=== PATIENT | male | born 1980 | race Caucasian/White ===

== ENCOUNTER 2017-01-27 13:28 | Observation (INO) | payer SELFPAY ==
[~2017-01-27] VITALS: Ht 181.6 cm; Wt 161.7 kg
[2017-01-27] VITALS (11 sets, daily range): BP systolic 164–233; BP diastolic 98–142; PULSE 83–97; RESP 14–21; O2SAT 94–97
--- NOTE | 2017-01-27 14:21 | ED.REPORT ---
HPI-General Illness Date of Service Jan 27, 2017 ED Provider: Guy Guevara MD Patient is a 36 year old male with a history of uncontrolled hypertension presents to the ED with a sharp, throbbing headache that first began at 1200 today. Patient reports that the pain was mildly present prior to falling asleep this morning but after waking up he began to experience severe pressure on the left side of his head. He rates his current pain as a 5/10. BP upon initial examination is 203/114. He denies any blurry vision, chest pain, SOB, fever or chills. Nursing Notes Stated Complaint: HEAD PAIN Chief Complaint: Neuro Symptoms/ Deficits Nursing Notes Reviewed: Yes Allergies: Coded Allergies: No Known Allergies (Unverified , 01/27/17) Scheduled Amlodipine (Amlodipine) 5 Mg Tablet 5 MG PO DAILY Levothyroxine (Levothyroxine) 125 Mcg Tablet 125 MCG PO DAILYAC Losartan Potassium (Cozaar) 25 Mg Tablet 25 MG PO DAILY Scheduled PRN Ibuprofen (Ibuprofen) 200 Mg Capsule 400 MG PO QID PRN PRN For Pain General Time Seen by MD: 13:49 Chief Complaint Headache Hx Obtained From: Patient Arrived By: Walk-in Sudden in Onset?: No Onset Occurred: 1 - 4 hours ago Symptom Duration: Since onset Location: : Head Quality: Aching, Sharp, Throbbing Radiation: : Does not radiate Severity: Current: Moderate Severity: Maximum: Moderate Associated with: Denies: Chest pain, Fever, Shortness of breath, Vision change Pertinent Negative: Pt denies other symptoms Recent Healthcare: No recent doctor visit, No recent hospitalization Past Medical History Past Medical History Hypertension - uncontrolled Past Surgical History None reported. Smoking History Unknown if Ever Smoker Social History Other Social History: Good social support, Local resident Ambulatory Status Independent Review of Systems Full Review of Systems Constitutional: Denies: Chills, Fever Respiratory: Denies: Shortness of breath Cardiovascular: Denies: Chest pain Neurologic: Reports: Headache Complete sys rev & neg: except as marked. Physical Exam Vital Signs Vital Signs Date Time Temp Pulse Resp B/P Pulse Ox O2 Delivery O2 Flow Rate FiO2 01/27/17 16:17 90 20 187/103 95 Room Air 01/27/17 15:36 91 18 187/107 96 Room Air 01/27/17 15:07 92 16 164/111 97 Room Air 01/27/17 14:42 91 17 210/109 95 Room Air 01/27/17 13:55 94 21 201/133 94 Room Air 01/27/17 13:37 37 92 17 233/142 97 Room Air Initial VS: Reviewed Skin: Warm, Dry, No cyanosis Psychiatric: Mood/affect normal, Behavior normal, Normal thought content General/Constitutional: Awake, Alert, No acute distress, Well appearing, Well developed Head / Eyes: Atraumatic, Normocephalic, PERRL, EOMI Neck: Atraumatic, Supple, Full range of motion Respiratory / Chest: Atraumatic, Breath sounds NL, Breath sounds = bilat, No respiratory distress Cardiovascular: Heart rate NL, Regular rhythm, Heart sounds NL, No gallop, No murmurs, No rubs Hypertensive (203/113 upon initial exmaination) Abdomen: Atraumatic, Soft, Non-tender, No guarding, No rebound, BS normoactive , No distention Upper Extremities Upper Extremity / MS: Atraumatic, Inspection NL, Neurologic intact, Vascular intact Lower Extremity / Pelvis / MS: Atraumatic, Inspection NL, Neurologic intact, Vascular intact Neurologic: Oriented X3, Speech NL, No motor deficits, No sensory deficits, CN II - XII intact, Reflexes equal bilat Interpretation & Diagnostics Lab Results Interpretation Result Diagram: 01/28/175 01/28/17 0225 Test 01/27/17 15:06 01/27/17 15:50 Neutrophils (%) (Auto) 62.9% (40-74) Lymphocytes (%) (Auto) 23.6% (14-46) Monocytes (%) (Auto) 10.1% (4-12) Eosinophils (%) (Auto) 2.6% (0-5) Basophils (%) (Auto) 0.4% (0-3) Prothrombin Time 9.8sec (8.1-12.5) Prothromb Time International Ratio 0.92ratio Hemoglobin A1c 5.9% (4.8-5.6) Total Bilirubin 0.3mg/dL (0.0-1.2) Aspartate Amino Transf (AST/SGOT) 22U/L (0-50) Alanine Aminotransferase (ALT/SGPT) 25U/L (0-44) Alkaline Phosphatase 104U/L (25-150) Troponin T < 0.010ug/L (0.0-0.011) Total Protein 7.7g/dL (6.4-8.4) Albumin 3.8g/dL (3.4-5.0) Triglycerides Level 103mg/dL (0-149) Cholesterol Level 117mg/dL (100-199) LDL Cholesterol, Calculated 58.400mg/dL (0-99) VLDL Cholesterol 20.600mg/dL HDL Cholesterol 38mg/dL (>39) Cholesterol/HDL Ratio 3.08 (0.0-4.4) Thyroid Stimulating Hormone (TSH) 20.390uIU/mL (0.450-4.500) Free Thyroxine 0.70ng/dL (0.82-1.77) Urine Color Yellow (YELLOW) Urine Appearance Cloudy (CLEAR,HAZY) Urine pH 7.0 (5.0-8.0) Urine Specific [place] 1.015 (1.003-1.035) Urine Protein Negativemg/dL (NEG,TRACE) Urine Glucose (UA) Negativemg/dL (NEGATIVE) Urine Ketones Negativemg/dL (NEGATIVE) Urine Occult Blood Small (NEGATIVE) Urine Nitrite Negative (NEGATIVE) Urine Bilirubin Negative (NEGATIVE) Urine Urobilinogen Normalmg/dL (NORMAL) Urine Leukocyte Esterase Negative (NEGATIVE) Urine RBC 3-10/hpf (0-2) Urine WBC 0-5/hpf (0-5) Urine Epithelial Cells Few/hpf (NONE-MOD) Urine Crystals None seen (NONE SEEN) Urine Bacteria Few/hpf (NONE-FEW) Urine Hyaline Casts None/lpf (NONE) Urine Granular Casts None seen (NONE SEEN) Urine Waxy Casts None seen (NONE SEEN) Urine Red Blood Cell Casts None seen (NONE SEEN) Urine White Blood Cell Casts None seen (NONE SEEN) Urine Mucus None seen (None Seen) Urine Trichomonas None seen (NONE SEEN) Urine Yeast None (NONE SEEN) Urinalysis Comment None Urine Culture Reflexed Not indicated ECG Interpretation ECG Interpretation: Sinus Rhythm Rate [address] elevation in anteroseptal leads No Q wave abnormalities No prior for comparison Time: 15:44 Interpreted by: ED physician CT Head Interpretation IMPRESSION: 1. No acute intracranial abnormalities. 2. Left maxillary sinusitis. Dictated by: Kevon Gaffney M.D. on 01/27/2017 at 15:14 Study: Head CT no contrast Interpretation / Wet Read by: Interpret - Radiologist Re-Eval/Medical Decision Med Decision/Clinical Course Patient is a 36 year old male with a history of uncontrolled hypertension presents to the ED with a sharp, throbbing headache that first began at 1200 today. Patient reports that the pain was mildly present prior to falling asleep this morning but after waking up he began to experience severe pressure on the left side of his head. He rates his current pain as a 5/10. BP upon initial examination is 203/114. He denies any blurry vision, chest pain, SOB, fever or chills. Here in the emergency department the patient is quite hypertensive though otherwise stable with no lateralizing neurologic findings. EKG: Sinus Rhythm Rate [address] elevation in anteroseptal leads No Q wave abnormalities No prior for comparison Brain CT 1. No acute intracranial abnormalities. 2. Left maxillary sinusitis. Serial blood pressure measurements demonstrated significant elevation in patient 's blood pressure in the 200s over 100s. Nicardipine drip was initiated. No evidence of blood pressure discrepancy between arms. CBC and CMP were relatively unremarkable. No evidence of acute kidney injury. No findings suggestive of aortic dissection or acute coronary syndrome. Patient will be admitted to ICU for further blood pressure management in the setting of concern for hypertensive emergency due to severe headache and markedly elevated blood pressure. Pt discussed with the admitting hospitalist and transferred in stable condition. Time of Eval: 14:30 Re-Evaluation/Progress Note: Pt is informed of his concerning BP and the plan to admit to the hospital to helo control his BP. All questions are addressed. He understands and agrees with the treatment plan. Time of Eval: 15:23 Re-Evaluation/Progress Note: Following treatment, BP is 164/111. 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: Will see patient, Agrees with eval, Agrees with plan, Accepts admit Counseled Regarding: Diagnosis, Lab results, Need for admission Discharge & Departure Primary Impression: Hypertensive emergency Additional Impressions: Headache Headache type: unspecified Headache chronicity pattern: unspecified pattern Intractability: not intractable Qualified Code: R51 - Headache Hypokalemia Disposition: ADMITTED TO HOSPITAL Discharge Condition All VS Reviewed: Yes Condition: Stable Referrals: NOPCP (PCP) [facility] Crit Care Except Billable Proc Time Spent: 75-104 minutes Services Performed: Patient management by me, Time spent at bedside, Reviewing test results, Reviewing imaging, Discussing patient care, Documentation in record, Time with fam/surrogate Scribe Attestation Portions of this note were transcribed by Jean Patiño. I, Dr. Guevara personally performed the history, physical exam and medical decision-making; I reviewed and confirmed the accuracy of the information in the transcribed note. Signed by: Milind Simpson, 01/27/17 1542. Guy Guevara MD Jan 27, 2017 14:21 JEAN PATIÑO Jan 27, 2017 14:27
[2017-01-27] MEDS ORDERED: Alum-Mag Hydrox-Simeth 30 mL Suspension PO PRN ×2 (14:25→15:40)
[2017-01-27] MEDS ORDERED: IBUP200C PO (14:34)
[2017-01-27] MEDS ORDERED: NiCARdipine 25 mg/250 mL D5W IV SCH ×2 (14:35)
[2017-01-27 15:12] LABS: BASOPHILS % (AUTO) 0.4 % (0-3); EOSINOPHILS % (AUTO) 2.6 % (0-5); MONOCYTES % (AUTO) 10.1 % (4-12); Mean Corpuscular Hemoglobin 28.5 pg (27.0-35.0); Mean Corpuscular Volume 84.6 fL (81-100); NEUTROPHILS % (AUTO) 62.9 % (40-74); Platelet Count 211 bil/L (150-400)
--- NOTE | 2017-01-27 15:18 | DRSVH ---
PROCEDURE: CT BRAIN WITHOUT CONTRAST ([id number]) INDICATIONS: Stroke TECHNIQUE: Noncontrast 4.5 mm thick angled axial sections acquired from the foramen magnum to the vertex, with c oronal reformats. COMPARISON: None. FINDINGS: Image quality: Excellent. CSF spaces: Basal cisterns are patent. No extra-axial fluid collections. Ventricles are normal in size and shape. Brain: No midline shift. No intracranial masses or hemorrhage. Mata-white matter interface is norm al. Skull and face: Calvarium and visualized facial bones are intact, without suspicious lesions. Sinuses: The left maxillary sinus is opacified. The mastoids are clear. IMPRESSION: 1. No acute intracranial abnormalities. 2. Left maxillary sinusitis. Dictated by: Kevon Gaffney M.D. on 01/27/2017 at 15:14 Approved by: Kevon Gaffney M.D. on 01/27/2017 at 15:16
[2017-01-27 15:24] LABS: INR 0.92 ratio
[2017-01-27 15:33] LABS: TROPONIN T < 0.010 ug/L (0.0-0.011)
[2017-01-27] MEDS ORDERED: Ondansetron 2 mg/mL 2 mL Inj IVPUSH PRN (15:40)
[2017-01-27] MEDS ORDERED: Polyethylene Glycol (PEG) 17 Gm Powder PO PRN (15:40)
[2017-01-27 16:22] LABS: APPEARANCE,URINE CLOUDY (CLEAR,HAZY); COLOR,URINE YELLOW (YELLOW); OCCULT BLOOD,URINE SMALL (NEGATIVE); UROBILINOGEN,URINE NORMAL (NORMAL)
--- NOTE | 2017-01-27 18:14 | PCM.HPMED ---
Subjective Date of Service Jan 27, 2017 Primary Provider: Admitting Physician: Dr. Christopher Chowdhury Primary Care Physician: No PCP Attending Physician: Dr. Christopher Chowdhury Admit Status: From the Emergency Department Chief Complaint: Hypertensive Urgency Headache History of Present Illness: Pranav Clark is a 36 year old gentleman with no known past medical history who presented to the ED with a pressure headache, found to have hypertensive urgency. 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 He woke up with a 5/10 throbbing pressure on the top left of his head at noon and decided to come in. He denies any other symptoms including changes to vision, chest pain, shortness of breath, fever or chills. He doesn't have any pain in his temples. In the ED he was found to have a blood pressure of 203/114 on [address] examination. Head CT showed no acute intracranial abnormalities, but a left maxillary sinusitis. He was about to get started on a nicardipine drip, but his blood pressure did come down to 164/111. He is found to be hypokalemic in the ED with potassium 3.1. He is admitted for further monitoring of his blood pressure. Review of Systems: A comprehensive review of systems was conducted with the patient and found to be negative except as above in the History of Present Illness. 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 External ears without defect. Pupils equal, round, and reactive to light and accommodation. Anicteric sclerae, moist conjunctivae. Oropharynx free of erythema and cobble stoning with moist mucosa. Tounge piercing. Neck: Supple with full range of motion. No jugular venous distension. No bruits. No lymphadenopathy or thyromegaly. Cardiovascular: Regular rate and rhythm with no murmurs, rubs, or gallops appreciated Pulmonary: Clear to auscultation bilaterally with no crackles, wheezes, or rhonchi. Normal respiratory effort with no use of accessory muscles. Abdomen: Bowel tones present. Soft, nontender, nondistended. Difficult to assess organomegaly due to body habitus. Extremities: Mild pitting edema, No clubbing, cyanosis, or lymphadenopathy appreciated. Skin: Normal temperature, turgor, and texture; no rash, ulcers, or subcutaneous nodules appreciated. erythematous rash around both ankles Neurological: Cranial nerves grossly intact. Normal muscle strength, tone, and bulk. Reflexes, coordination, and sensory function within normal limits. No known gait impairment. Psychiatric: Normal mood and affect. Alert and oriented to person, place, and time. Pleasant and cooperative. Lab and Diagnostics Labs Item Value Date Time Sodium Level 138 mEq/L 01/27/17 1506 Potassium Level 3.1 mEq/L L 01/27/17 1506 Chloride Level 100 mEq/L 01/27/17 1506 Carbon Dioxide Level 23 mmol/L 01/27/17 1506 Blood Urea Nitrogen 15 mg/dL 01/27/17 1506 Creatinine 0.73 mg/dL L 01/27/17 1506 Estimat Glomerular Filtration Rate 128 mL/min 01/27/17 1506 Glucose Level 154 mg/dL H 01/27/17 1506 Troponin T < 0.010 ug/L 01/27/17 1506 White Blood Count 8.2 th/mm3 01/27/17 1506 Red Blood Count 4.94 mil/mm3 01/27/17 1506 Hemoglobin 14.1 g/dL 01/27/17 1506 Hematocrit 41.8 % 01/27/17 1506 Prothrombin Time 9.8 sec 01/27/17 1506 Prothromb Time International Ratio 0.92 ratio 01/27/17 1506 Urine Color Yellow 01/27/17 1550 Urine Appearance Cloudy 01/27/17 1550 Urine pH 7.0 01/27/17 1550 Urine Occult Blood Small 01/27/17 1550 Urine Nitrite Negative 01/27/17 1550 Urine Leukocyte Esterase Negative 01/27/17 1550 Urine RBC 3-10 /hpf 01/27/17 1550 Urine WBC 0-5 /hpf 01/27/17 1550 Urine Epithelial Cells Few /hpf 01/27/17 1550 Urine Bacteria Few /hpf 01/27/17 1550 Result Diagram: 01/27/17 1506 X-Rays, CTs and MRIs PROCEDURE: CT BRAIN WITHOUT CONTRAST ([id number]) IMPRESSION: 1. No acute intracranial abnormalities. 2. Left maxillary sinusitis. Assessment & Plan Pranav Clark is a 36 year old gentleman with no known past medical history who presented to the ED with a pressure headache, found to have hypertensive urgency. Hypertensive Urgency, Present on Admission, Resolved Patient found to have blood pressure of 233/142 in the ED initially, no acute intracranial abnormalities seen on CT. Came down to 164/111 without treatment. - Losartan 25 mg and amlodipine daily, per ACCOMPLISH trial - Monitor Blood pressure q2h - Monitor telemetry Headache, Present on Admission, Resolved Patient had 5/10 left sided headache, likely secondary to his blood pressure. - Tylenol PRN for pain Hypothyroidism, Present on Admission, Active TSH 20.4, Free T4 0.7, Newly diagnosed - Have started Levothyroxine 125 mcg - This needs to be monitored and followed up outpatient in 4-6 weeks Morbid Obesity, Present on Admission, Active BMI of 49.1 - Ordered Lipid panel, Hemoglobin A1c, TSH, Free T4 Code Status: Full Code Patient Status: Patient is admitted under observation status with expected length of stay less than 2 midnights due to severity of presenting symptoms and risk of adverse event. GI Prophylaxis: Not indicated Resuscitation Status: CPR: Attempt Resuscitation Attending Statement The patient was seen and examined together with Dr. Franco on 01/27/2017 and I agree with the history, exam and plan as outlined in the note above. . Timothy Franco DO Jan 27, 2017 15:39 Christopher Chowdhury MD Jan 28, 2017 07:52
[2017-01-27] MEDS ORDERED: Potassium Chloride 20 mEq SR Tablet PO ONE (18:35)
--- NOTE | 2017-01-27 19:47 | NUR ---
1730: Admit from E.R. / MD @ bedside; PCC status/ Pt awake, Ox3, DESAI equally. Denies pain, denies headache @ present. VS: Left Upper arm BP 178/102. Right Upper arm 178/106. Bedside Blood Glucose = 103. See admission & med rec in EMR; both completed by load haul dump operator.
[2017-01-28] VITALS (11 sets, daily range): BP systolic 151–188; BP diastolic 92–117; PULSE 73–91; RESP 12–18; O2SAT 97
--- NOTE | 2017-01-28 00:28 | NUR ---
P: current BP 176/117 I: akira and magdi given earlier, notified Dr. Hutchins E: Dr. Hutchins made aware. Will wait another hour and reevaluate for nicardipine drip. A/O. c/o "sinus" ache, 2/10 and a dry throat. Refusing tylenol and requesting coffee for sinuses and dry throat, helpful. "I get HAs when I do not drink coffee". Denies dyspnea, N/V. Tele SR. Voiding via urinal.
[2017-01-28 02:56] LABS: Mean Corpuscular Hemoglobin 28.7 pg (27.0-35.0); Mean Corpuscular Volume 84.3 fL (81-100)
--- NOTE | 2017-01-28 04:20 | NUR ---
P: hypertension I: cozaar, norvasc, and labetolol E: A/O. c/o sinus pain, 2/10 along w/ dry throat. Coffee and tylenol effective for sinus CALABRESE and dry throat. Denies dyspnea, N/V. Tele SR. SBP 170-200s, DBP 100-120s. Cozaar and norvasc not improving BP. Labetolol given, helpful. Current lowest BP 159/92. Voiding via urinal.
--- NOTE | 2017-01-28 11:07 | NUR ---
Social Work- Initial Assessment/Readiness for Discharge/Multidisciplinary Rounds Data: See Initial Assessment and DPOA Intervention for additional information. Pt discussed in rounds, pt to discharge home. PCP follow up is required for pt at discharge. notified that Residency Clinic is closed on Sundays. RN will put contact information of residency clinic in D/C Instructions for pt to follow up during a weekday. Pt also has no insurance. Pt's readmit risk score is 1, low risk. Pt's NOK is mother Jessica Clark, . Registration contacted to reflect this. SW met with pt at bedside regarding discharge plan, pt alert and oriented x3. Pt's capacity for self-care assessed. Pt resides in [facility] with his roommates where he is independent at baseline. Pt is independent with ADLs and self-care. No concerns identified. Pt does not have insurance at this time, ARASH discussed with pt the importance of getting insurance through the [employer] or through [employer]. Both applications are online. Pt is agreeable to looking into obtaining insurance after discharge. Pt's medications at discharge were confirmed to be around $10 from [facility], pt is agreeable and confirms that he will be able to afford these. Pt does not drive. Pt declined DPOA paperwork at bedside. Pt will discharge home with his roommate to transport via POV. Pt agreeable to plan. Assessment: Pt who is independent at baseline. Plan: Pt will discharge home with his to transport via POV. No discharge needs identified. UMANG King Addendum: 01/28/[address] SERRANO Amended: Links added.
--- NOTE | 2017-01-28 11:26 | PCM.DIMED ---
MONALISA ORDAZ DO 01/28/17 1125: Discharge Instructions Date of Service Jan 28, 2017 Dates of Hospitalization Jan 27, 2017 at 16:20 Discharge Diagnosis Discharge Diagnosis Hypertensive urgency Medication Instructions Additional med instructions Losartan 25 mg daily Amlodipine 5 mg daily Levothyroxine 125 mcg Test Results Test Results TSH - 20.390 T4 - 0.70 Patient Instructions Patient Instructions Follow up with the Residency clinic here at [facility]. I would advise following up in no more than 3 - 4 weeks time. It is very important to keep your blood pressures below 140/80. You should get your own blood pressure machine for your house, however in the mean time you can check your blood pressure daily at [facility] or [facility]. Take your medications as directed. Seek medical attention if your blood pressure is higher than 180/100 and you have symptoms including chest pain, acute shortness of breath, head ache, syncope, nausea / vomiting / diarrhea. You will need to get blood work drawn 1 week before your appointment. If you do not receive a phone call from the [facility] residency clinic in 2-3 days. Please call them and make an appointment. We have provided you with patient education regarding hypothyroid and hypertension. Follow-up Provider: [facility] Follow-up with PCP in: 3 weeks (2-3 weeks) Christopher Chowdhury MD 01/29/17 1049: Discharge Instructions Attending's Statement The patient was seen and examined together with Dr. Ordaz on 01/29/2017 and I agree with the history, exam and plan as outlined in the note above. . MONALISA ORDAZ DO Jan 28, 2017 11:25 Christopher Chowdhury MD Jan 29, 2017 10:49
[2017-01-28] MEDS ORDERED: LOSA25TA2 PO (11:27)
[2017-01-28] MEDS ORDERED: AMLO5TAB2 PO (11:27)
[2017-01-28] MEDS ORDERED: LEVO125T6 PO (11:27)
--- NOTE | 2017-01-28 11:45 | NUR ---
P: Hypertension I: BP after am BP meds given 140/92. Saline lick dc'd with catheter intact. Room air with good sats. Taking diet and fluids without difficulty. Voiding qs. UYp in room independently. Discharge instructions given with care notes and RX. E:Stable S: Alert and oriented. Indicates understanding of Rx and discharge instructions. Discharged home with family transport 1146.
--- NOTE | 2017-01-28 12:12 | NUR ---
Social Work- Discharge Data: Pt discharged today. Home with roommate via POV. Pt agreeable to discharge plan Assessment: Pt who is independent at baseline. Plan: Pt discharged today. Home with roommate via POV. Pt agreeable to discharge plan UMANG King
--- NOTE | 2017-01-28 17:32 | PCM.DC.MED ---
Discharge Summary Date of Service Jan 28, 2017 Dates of Hospitalization Date of Hospital Admission Jan 27, 2017 at 16:20 Date of Discharge: Jan 28, 2017 Providers: Admitting Physician: Christopher Chowdhury MD Primary Care Physician: Nopcp Attending Physician: Christopher Chowdhury MD Diagnosis at Time of Discharge Diagnosis at Time of Discharge Hypertensive urgency Procedures XRay, CTs & MRIs PROCEDURE: CT BRAIN WITHOUT CONTRAST ([id number]) IMPRESSION: 1. No acute intracranial abnormalities. 2. Left maxillary sinusitis. Brief History Pranav Clark is a 36 year old gentleman with no known past medical history who presented to the ED with a pressure headache, found to have hypertensive urgency. 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 He woke up with a 5/10 throbbing pressure on the top left of his head at noon and decided to come in. He denies any other symptoms including changes to vision, chest pain, shortness of breath, fever or chills. He doesn't have any pain in his temples. In the ED he was found to have a blood pressure of 203/[address] on [address] examination[address] Head CT showed no acute intracranial abnormalities, but a left maxillary sinusitis. He was about to get started on a nicardipine drip, but his blood pressure did come down to 164/111. He is found to be hypokalemic in the ED with potassium 3.1. He is admitted for further monitoring of his blood pressure. He received good outpatient medication regimen of antihypertensives and hypothyroid medications. Hospital Course Hypertensive Urgency Patient found to have blood pressure of 233/142 in the ED initially, no acute intracranial abnormalities seen on CT. Came down to 164/111 without treatment. - Losartan 25 mg and amlodipine daily, per [facility] trial Headache Patient had 5/10 left sided headache, likely secondary to his blood pressure which have now resolved. - Tylenol PRN for pain Hypothyroidism, Present on Admission, Active TSH 20.4, Free T4 0.7, Newly diagnosed. - Have started Levothyroxine 125 mcg and will continue daily. - This needs to be monitored and followed up outpatient in 4-6 weeks with [facility] and with follow up labs. Morbid Obesity, Present on Admission, Active BMI of 49.1 - Ordered Lipid panel, within normal limits. - Hemoglobin A1c pending. - Follow up as an outpatient. Patient Status: Patient was discharged 01/28/17 asymptomatic and in stable condition with prescriptions for new medications and follow up appointments to establish care with a primary care physician here with [facility] residency clinic. Exam Vital Signs (Last) Date Time Temp Pulse Resp B/P Pulse Ox O2 Delivery O2 Flow Rate FiO2 01/28/17 10:42 91 01/28/17 08:30 36.8 17 162/101 97 Room Air Exam General: Morbidly obese male, No acute distress, well-developed, well- nourished, appropriately interactive HEENT: Normocephalic, atraumatic. External ears without defect. Pupils equal, round, and reactive to light and accommodation. Anicteric sclerae, moist conjunctivae. Oropharynx free of erythema and cobble stoning with moist mucosa. Tounge piercing. Neck: Supple with full range of motion. No jugular venous distension. No bruits. No lymphadenopathy or thyromegaly. Cardiovascular: Regular rate and rhythm with no murmurs, rubs, or gallops appreciated Pulmonary: Clear to auscultation bilaterally with no crackles, wheezes, or rhonchi. Normal respiratory effort with no use of accessory muscles. Abdomen: Bowel tones present. Soft, nontender, nondistended. Difficult to assess organomegaly due to body habitus. Extremities: Mild pitting edema, No clubbing, cyanosis, or lymphadenopathy appreciated. Skin: Normal temperature, turgor, and texture; no rash, ulcers, or subcutaneous nodules appreciated. erythematous rash around both ankles Neurological: Cranial nerves grossly intact. Normal muscle strength, tone, and bulk. Reflexes, coordination, and sensory function within normal limits. No known gait impairment. Psychiatric: Normal mood and affect. Alert and oriented to person, place, and time. Pleasant and cooperative. Test 01/27/17 15:06 01/27/17 15:50 01/28/17 02:25 01/28/17 07:08 Neutrophils (%) (Auto) 62.9% (40-74) Lymphocytes (%) (Auto) 23.6% (14-46) Monocytes (%) (Auto) 10.1% (4-12) Eosinophils (%) (Auto) 2.6% (0-5) Basophils (%) (Auto) 0.4% (0-3) Prothrombin Time 9.8sec (8.1-12.5) Prothromb Time International Ratio 0.92ratio Total Bilirubin 0.3mg/dL (0.0-1.2) Aspartate Amino Transf (AST/SGOT) 22U/L (0-50) Alanine Aminotransferase (ALT/SGPT) 25U/L (0-44) Alkaline Phosphatase 104U/L (25-150) Troponin T < 0.010ug/L (0.0-0.011) Total Protein 7.7g/dL (6.4-8.4) Albumin 3.8g/dL (3.4-5.0) Triglycerides Level 103mg/dL (0-149) Cholesterol Level 117mg/dL (100-199) LDL Cholesterol, Calculated 58.400mg/dL (0-99) VLDL Cholesterol 20.600mg/dL HDL Cholesterol 38mg/dL (>39) Cholesterol/HDL Ratio 3.08 (0.0-4.4) Thyroid Stimulating Hormone (TSH) 20.390uIU/mL (0.450-4.500) Free Thyroxine 0.70ng/dL (0.82-1.77) Urine Color Yellow (YELLOW) Urine Appearance Cloudy (CLEAR,HAZY) Urine pH 7.0 (5.0-8.0) Urine Specific [place] 1.015 (1.003-1.035) Urine Protein Negativemg/dL (NEG,TRACE) Urine Glucose (UA) Negativemg/dL (NEGATIVE) Urine Ketones Negativemg/dL (NEGATIVE) Urine Occult Blood Small (NEGATIVE) Urine Nitrite Negative (NEGATIVE) Urine Bilirubin Negative (NEGATIVE) Urine Urobilinogen Normalmg/dL (NORMAL) Urine Leukocyte Esterase Negative (NEGATIVE) Urine RBC 3-10/hpf (0-2) Urine WBC 0-5/hpf (0-5) Urine Epithelial Cells Few/hpf (NONE-MOD) Urine Crystals None seen (NONE SEEN) Urine Bacteria Few/hpf (NONE-FEW) Urine Hyaline Casts None/lpf (NONE) Urine Granular Casts None seen (NONE SEEN) Urine Waxy Casts None seen (NONE SEEN) Urine Red Blood Cell Casts None seen (NONE SEEN) Urine White Blood Cell Casts None seen (NONE SEEN) Urine Mucus None seen (None Seen) Urine Trichomonas None seen (NONE SEEN) Urine Yeast None (NONE SEEN) Urinalysis Comment None Urine Culture Reflexed Not indicated White Blood Count 9.8th/mm3 (3.8-10.1) Red Blood Count 4.98mil/mm3 (4.40-5.80) Hemoglobin 14.3g/dL (13.8-17.2) Hematocrit 42.0% (41.0-50.0) Mean Corpuscular Volume 84.3fL (81-100) Mean Corpuscular Hemoglobin 28.7pg (27.0-35.0) Mean Corpuscular Hemoglobin Concent 34.0% (32.0-37.0) Red Cell Distribution Width 14.6% (12.3-15.4) Platelet Count 246bil/L (150-400) Sodium Level 138mEq/L (134-144) Potassium Level 3.8mEq/L (3.5-5.2) Chloride Level 99mEq/L (97-108) Carbon Dioxide Level 23mmol/L (18-29) Blood Urea Nitrogen 13mg/dL (6-20) Creatinine 0.87mg/dL (0.76-1.27) Estimat Glomerular Filtration Rate 104mL/min (>59) Glucose Level 95mg/dL (60-99) Calcium Level 8.9mg/dL (8.5-10.1) Discharge Medications Discharge Medications Amlodipine (Amlodipine) 5 Mg Tablet 5 MG PO DAILY Prescribed by: MONALISA ORDAZ DO Levothyroxine (Levothyroxine) 125 Mcg Tablet 125 MCG PO DAILYAC Prescribed by: MONALISA ORDAZ DO Losartan Potassium (Cozaar) 25 Mg Tablet 25 MG PO DAILY Prescribed by: MONALISA ORDAZ DO As needed Ibuprofen (Ibuprofen) 200 Mg Capsule 400 MG PO QID PRN PRN For Pain (Reported) Additional med instructions Losartan 25 mg daily Amlodipine 5 mg daily Levothyroxine 125 mcg Followup Plan Patient Instructions Follow up with the Residency clinic here at [facility]. I would advise following up in no more than 3 - 4 weeks time. It is very important to keep your blood pressures below 140/80. You should get your own blood pressure machine for your house, however in the mean time you can check your blood pressure daily at [facility] or [facility]. Take your medications as directed. Seek medical attention if your blood pressure is higher than 180/100 and you have symptoms including chest pain, acute shortness of breath, head ache, syncope, nausea / vomiting / diarrhea. You will need to get blood work drawn 1 week before your appointment. If you do not receive a phone call from the [facility] residency clinic in 2-3 days. Please call them and make an appointment. We have provided you with patient education regarding hypothyroid and hypertension. Follow-up Provider: [facility] Follow-up with PCP in: 3 weeks (2-3 weeks) Time spent Greater than 30 minutes was spent in preparation of discharge with greater than 50% of that time dedicated to patient counseling and coordination of care. . Attending Statement The patient was seen and examined together with Dr. Ordaz on 01/28/2017 and I agree with the history, exam and plan as outlined in the note above. . copies to: [facility] Residency Clinic MONALISA ORDAZ DO Jan 28, 2017 17:32 Christopher Chowdhury MD Jan 29, 2017 10:50
== END 2017-01-28 11:55 | disposition home or self-care (01) ==
LOC: SED 13:28 → CCU 16:20 → INTOOBSV 16:20 → PCC 19:47
PROVIDERS: ADMIT Internal Medicine; ATTEND Internal Medicine
DX: I16.0 Hypertensive urgency (principal); R51 Headache; E03.9 Hypothyroidism, unspecified; E66.01 Morbid (severe) obesity due to excess calories; Z68.42 Body mass index [BMI] 45.0-49.9, adult
CPT/HCPCS: 36415; 70450; 80048; 80053; 80061; 81000; 82088; 83036; 84439; 84443; 84484; 85025; 85027; 85610; 93005; 99285; G0378; G0379